=== PATIENT | male | born 1985 | race Caucasian/White ===

== ENCOUNTER → 2022-07-03 | Outpatient (CLI) | payer BC, SELFPAY ==
--- NOTE | 2022-07-03 17:52 | CT_ITS ---
STUDY: CT Abdomen And Pelvis W/O Contrast Injection 07/03/2022 8:36 PM REASON FOR EXAM: Male, 36 years old. ABDOMINAL PAIN GROSS HEMATURIA X 2 WEEKS Technologist Notes Other, FAMILY HX POLYCYSTIC KIDNEY DISEASE TECHNIQUE: Transaxial images were obtained without oral contrast, and without intravenous contrast. Individualized dose optimization techniques were used for this CT. COMPARISON: None. FINDINGS: The visualized lung bases are unremarkable. The visualized portions of the heart are within normal limits. Multiple hypodensities of the liver. MRI can better evaluate. Unremarkable gallbladder and extrahepatic biliary system. Unremarkable spleen. Unremarkable pancreas. Unremarkable bilateral adrenal glands. Mixed low-density and hyperdense lesions in both kidneys. ACR White Paper guidelines (Herts, et al. JACR 2018; 15(2):264-273) recommend MRI or CT without and with intravenous contrast. There are bilateral renal calculi. There is no evidence for an obstruction. There is no hydronephrosis. Diffuse enlargement of both kidneys. Unremarkable visualized stomach. Unremarkable small intestine. Unremarkable colon. The appendix is visualized and appears unremarkable. There are no acute findings of the abdominal aorta. Unremarkable inferior vena cava. Subcentimeter mesenteric lymph nodes. Unremarkable urinary bladder. There is an umbilical hernia containing fat. There are diffuse degenerative changes of the visualized lumbar spine. CT/Abdomen/Pelvis without Cont IMPRESSION: (NOT LISTED IN ORDER OF SIGNIFICANCE) Mixed low-density and hyperdense lesions in both kidneys. ACR White Paper guidelines (Herts, et al. JACR 2018; 15(2):264-273) recommend MRI or CT without and with intravenous contrast. There are bilateral renal calculi. There is no evidence for an obstruction. There is no hydronephrosis. Other findings as above. Electronically Signed: Carloz Marroquin MD at 20:38 EDT ,
== END | disposition home or self-care (01) ==
LOC: CT 17:49
PROVIDERS: PCP Nurse Practitioner Family; Visit Provider Urology
DX: R31.0 Gross hematuria (principal); Q61.2 Polycystic kidney, adult type
CPT/HCPCS: 74176